=== PATIENT | male | born 1950 | race Caucasian/White ===

== ENCOUNTER 2019-02-22 13:38 | Inpatient (IN) | payer BC, OTHER ==
[2019-02-22] MEDS ORDERED: ALBUTEROL SO4 2.5/IPRATROPIUM 0.5 INH SOL 3 ML VIAL.NEB. NEB ONE ×4 (13:43→14:39)
[2019-02-22] MEDS ORDERED: predniSONE 20 MG TABLET (UD) PO ONE (13:44)
--- NOTE | 2019-02-22 13:44 | PDOC ---
History of Present Illness - General Chief Complaint: Respiratory Stated Complaint: SHORTNESS OF BREATH Time Seen by Provider: 02/22/19 13:44 History Source: Patient Exam Limitations: No Limitations - History of Present Illness Initial Comments: 02/22/19 13:57 69yM w PMHx HTN current smoker, past substance abuse presenting w SOB. Last 4d nasal congestion, chills, SOB. SOB worse lying down, not exacerbated w exertion. Took OTC dayquil, nyquil, advil without symptom relief. States every winter he has SOB relieved w bronchodilators. Denies past hx CHF or COPD though he hasnt seen a PCP or marketing operations specialist in a long time. Denies fever, headache, nausea/vomiting, cough, chest pain/tightness, ABD distension 02/22/19 16:17 Past History - Past Medical History Allergies/Adverse Reactions: Allergies Allergy/AdvReac Type Severity Reaction Status Date / Time No Known Allergies Allergy Verified 02/22/19 13:40 Home Medications: Ambulatory Orders NK [No Known Home Medication] 02/22/19 COPD: No Other medical history: pt denies - Psycho Social/Smoking Cessation Hx Smoking History: Current every day smoker Number of Cigarettes Smoked Daily: 30 Information on smoking cessation initiated: Yes Hx Alcohol Use: No Drug/Substance Use Hx: No Review of Systems - Review of Systems Constitutional: Yes: Chills. No: Fever HEENTM: Yes: Nose Congestion. No: Eye Pain, Throat Pain, Mouth Pain Respiratory: Yes: Shortness of Breath. No: Cough Cardiac (ROS): No: Chest Pain, Palpitations ABD/GI: No: Abdominal Distended, Constipated, Diarrhea, Nausea, Vomiting : No: Burning, Dysuria, Flank Pain Musculoskeletal: No: Back Pain, Muscle Pain Integumentary: No: Bruising, Dryness, Erythema Neurological: No: Headache, Seizure, Tingling Psychiatric: No: Anxiety, Depression, Stressors Endocrine: No: Excessive Sweating, Flushing, Intolerance to Cold, Intolerance to Heat Hematologic/Lymphatic: No: Anemia, Blood Clots *Physical Exam - Vital Signs Last Vital Signs Temp Pulse Resp BP Pulse Ox 97.5 F L 81 19 175/107 H 93 L 02/22/19 13:39 02/22/19 13:39 02/22/19 13:39 02/22/19 13:39 02/22/19 13:39 - Physical Exam General Appearance: Yes: Nourished, Appropriately Dressed. No: Apparent Distress HEENT: positive: EOMI, ABDI, Normal Voice, Nasal Congestion, Hearing Grossly Normal. negative: Scleral Icterus (R), Scleral Icterus (L), Tonsillar Exudate, Tonsillar Erythema Neck: negative: Lymphadenopathy (R), Lymphadenopathy (L) Respiratory/Chest: positive: Decreased Breath Sounds (fox), Wheezing (fox). negative: Chest Tender, Respiratory Distress, Crackles, Rales, Rhonchi, Stridor Cardiovascular: positive: Regular Rhythm, Regular Rate, S1, S2. negative: Edema , Murmur Gastrointestinal/Abdominal: positive: Normal Bowel Sounds, Flat, Soft. negative : Tender, Organomegaly Musculoskeletal: negative: CVA Tenderness (R), CVA Tenderness (L) Extremity: positive: Swelling (2+ pitting edema to knees fox) Integumentary: positive: Normal Color Neurologic: positive: flying ii instructor II-XII NML intact, Fully Oriented, Alert, Normal Response, Responsive. negative: Numbness, Confused, Disoriented ED Treatment Course - LABORATORY CBC & Chemistry Diagram: 02/22/19 14:20 02/22/19 14:20 Medical Decision Making - Medical Decision Making 02/22/19 13:54 CBC CMP trop BNP flu CXR shows fox pulm vascular congestion, fox basilar effusions, cardiomegaly EKG shows NSR, LVH, HR 87, long QTc 493, no ST changes CBC CMP normal, trop 0.05 --- 69yM w PMHx HTN current smoker presenting w SOB. Last 4d nasal congestion, chills, SOB d/t CHF exacerbation (orthopnea, BLE swelling, BNP 3000) and COPD exacerbation (fox wheezing, decreased breath sounds) exacerbation by viral URI. Low concern for PNA (no consolidation CXR) vs ACS (neg trop, NSR EKG). Repeat BP 178/116. Given albuterolx2, prednisone, 20 lasix. Did smoking cessation Admitted tele Dr Pierre for CHF exacerbation, COPD exacerbation, hypertension Discharge - Discharge Information Problems reviewed: Yes Clinical Impression/Diagnosis: COPD exacerbation, Viral URI CHF exacerbation Qualifiers: Heart failure type: unspecified Qualified Code(s): I50.9 - Heart failure, unspecified Hypertension Qualifiers: Hypertension type: unspecified Qualified Code(s): I10 - Essential (primary) hypertension Condition: Stable - Follow up/Referral Referrals: Padilla Foster MD [Staff Physician] - Raymundo Dodson MD [Staff Physician] - - Patient Discharge Instructions Patient Printed Discharge Instructions: DI for Heart Failure, DI for Chronic Obstructive Pulmonary Disease, Smoking Cessation - Post Discharge Activity
[2019-02-22] MEDS ORDERED: predniSONE 20 MG TABLET (UD) ONE (13:47)
--- NOTE | 2019-02-22 14:15 | PDOC ---
Attending Attestation - Resident Resident Name: Ronny Ingram - ED Attending Attestation I have performed the following: I have examined & evaluated the patient, The case was reviewed & discussed with the resident, I agree w/resident's findings & plan, Exceptions are as noted - HPI HPI: 02/22/19 14:09 69 yo male h/o long time smoking here with cough congestion sob and exertional dyspnea for few days. pt describes chills, no fever. no n/v has noted bilat swelling to his extremities. denying any chest pain however he does have positional worsening shortness of breath and exertional dyspnea. Denies any recent known history of heart disease or congestive heart failure. States that he has never been diagnosed truly with COPD however he has been treated for bronchitis with bronchodilators in the past. Does not have any bronchodilators at home. no known sick contacts. no travel. no known h/o pe or dvt. 02/22/19 14:46 - Physicial Exam PE: 02/22/19 14:48 Awake alert no acute distress patient does have bilateral expiratory wheezing and faint crackles at the bases. He has normal effort however and good aeration. Heart is regular without any murmurs rubs or gallops abdomen is soft nontender there is noted to be reducible billable hernia. Extremities are noted for bilateral pitting edema 2+ to the mid serrano. 2+ DP PT pulses. Patient is awake alert and oriented x3 skin is warm and dry - Medical Decision Making 02/22/19 14:48 69-year-old male history of long-time smoking likely COPD here today with cough congestion subjective chills and shortness of breath. Also noted to have a new peripheral leg edema. There may be a viral component differential includes CHF , pneumonia, COPD exacerbation, renal failure, or liver disease. Plan chest x- ray EKG chest x-ray BNP troponin CBC CMP. We will initially treat with bronchodilators and steroids. Flu swab was sent and is pending 02/22/19 16:06 pt bnp elevated. cxr wtih vasc congestion, concerns for CHF. did feel mild improved with nebs. ordered for lasix. due to fact pt no h/o chf, recommend admission . cardiac workup. pt hesitant to stay . currently has no pcp. family friend dr Goldstein. offered to call DR Goldstein to discuss plan. pt would like to think it over, does not want dr goldstein called at this time. 02/22/19 17:44 pt agreeable with admission. given lasix 20 mg bp improved. oxygen improved wtih negs and oxygen. will need echo on admission. copd exacerabation, and chf. Heart Score/ECG Review #1 General ECG Interpretation: Sinus Rhythm, Normal Rate (87), Normal Intervals, No acute ischemic changes
[2019-02-22 14:33] LABS: EOS % 1.6 % (0-4.5); HEMATOCRIT 45.8 % (35.4-49); HEMOGLOBIN 15.3 GM/dl (11.7-16.9); MCH 30.4 pg (25.7-33.7); MCHC 33.3 g/dl (32.0-35.9); MEAN CELL VOLUME 91.2 fl (80-96); MEAN PLT VOLUME 8.4 fl (7.5-11.1); MONO % 8.4 % (3.8-10.2); PLATELET COUNT 273 K/MM3 (134-434); RBC 5.02 M/mm3 (4.00-5.60); RDW 13.3 % (11.9-15.9); WHITE BLOOD COUNT 9.8 K/mm3 (4.0-10.8)
[2019-02-22 14:55] LABS: ALBUMIN 3.8 g/dl (3.4-5.0); BILIRUBIN,TOTAL 0.7 mg/dl (0.2-1); CALCIUM 8.7 mg/dl (8.5-10); CREATININE 0.9 mg/dl (0.55-1.3); POTASSIUM 3.5 mmol/L (3.5-5.1); TOT PROT 6.9 g/dl (6.4-8.2)
[2019-02-22] MEDS ORDERED: FUROSEMIDE 20 MG TABLET (FP) PO ONE (15:51)
[2019-02-22] MEDS ORDERED: FUROSEMIDE 40 MG TABLET (FP) ONE (16:01)
[2019-02-22] MEDS ORDERED: ALBUTEROL SO4 2.5/IPRATROPIUM 0.5 INH SOL 3 ML VIAL.NEB. NEB PRN (17:06)
[2019-02-22] MEDS ORDERED: amLODIPine BESYLATE 5 MG TABLET (FP) PO ONE (17:26)
[2019-02-22] MEDS ORDERED: methylPREDNISolone NA SUCC 40 MG/1 ML VIAL IVPUSH SCH (17:30)
[2019-02-22] MEDS: FUROSEMIDE 40 MG/4 ML INJECTABLE VIAL IVPUSH SCH (18:04)
[2019-02-22] MEDS ORDERED: POTASSIUM CHLORIDE TABS 20 MEQ TABLET.ER (FP) PO ONE (18:07)
--- NOTE | 2019-02-22 18:21 | CON.CARD ---
Consult Consult Specialty:: Cardiology Referred by:: Emergency Medicine Reason for Consultation:: SOLIMAN, orthopnea - History of Present Illness Chief Complaint: SOLIMAN, orthopnea History of Present Illness: 69 yo male h/o long time smoking presents with nonproductive cough, exertional dyspnea, LE edema and orthopnea w/o chest pain, near or true syncope, palpitations, PND. Patient adds salt to diet, uses Advil. Noted to be hypertensive 178/116, hypoxic, symptoms improving with diuresis. - History Source History Provided By: Patient Limitations to Obtaining History: No Limitations - Alcohol/Substance Use Hx Alcohol Use: No - Smoking History Smoking history: Current every day smoker Aproximately how many cigarettes per day: 30 Home Medications - Allergies Allergies/Adverse Reactions: Allergies Allergy/AdvReac Type Severity Reaction Status Date / Time No Known Allergies Allergy Verified 02/22/19 13:40 - Home Medications Home Medications: Ambulatory Orders NK [No Known Home Medication] 02/22/19 Review of Systems - Review of Systems Respiratory: reports: Exercise Intolerance, Orthopnea, SOB, SOB on Exertion Vital Signs: Vital Signs Temperature 99.1 F 02/22/19 16:04 Pulse Rate 78 02/22/19 17:07 Respiratory Rate 19 02/22/19 17:07 Blood Pressure 164/95 02/22/19 17:07 O2 Sat by Pulse Oximetry (%) 94 L 02/22/19 17:07 Constitutional: Yes: No Distress, Calm, Thin Neck: Yes: Supple Respiratory: Yes: Regular, Diminished Gastrointestinal: Yes: Normal Bowel Sounds, Soft Cardiovascular: Yes: Regular Rate and Rhythm JVD: No Carotid Bruit: No Heart Sounds: Yes: S1, S2 Murmur: Yes: Systolic Murmur, Grade 1 Edema: Yes Edema: LLE: Trace, RLE: Trace - Other Data Labs, Other Data: CBC, BMP 02/22/19 14:20 02/22/19 14:20 Troponin, BNP 02/22/19 02/22/19 14:20 14:20 Troponin I 0.05 B-Natriuretic Peptide 3333.9 H Troponin, BNP 02/22/19 02/22/19 14:20 14:20 Troponin I 0.05 B-Natriuretic Peptide 3333.9 H NSR @ 87 LAE, LVH with nonspec T wave changes Imaging - Results Chest X-ray: Report Reviewed (CHF) Problem List - Problems (1) Hypertensive heart disease with acute diastolic congestive heart failure Code(s): I11.0 - HYPERTENSIVE HEART DISEASE WITH HEART FAILURE; I50.31 - ACUTE DIASTOLIC (CONGESTIVE) HEART FAILURE (2) Tobacco dependence due to cigarettes Code(s): F17.210 - NICOTINE DEPENDENCE, CIGARETTES, UNCOMPLICATED (3) Acute respiratory failure with hypoxia Code(s): J96.01 - ACUTE RESPIRATORY FAILURE WITH HYPOXIA (4) CHF exacerbation Code(s): I50.9 - HEART FAILURE, UNSPECIFIED Qualifiers: Heart failure type: unspecified Qualified Code(s): I50.9 - Heart failure, unspecified Assessment/Plan 1. Acute hypoxic respiratory failure 2. Acute diastolic heart failure 3. Hypertensive heart disease with urgency 4. Tobacco dependence 5. COPD P:1. IV diuresis with monitor diuretic response, renal fxn and electrolytes, replete K 2. Start Diovan 80 qd with uptitration as tolerated, started Norvasc 5 qd 3. Check echo to assess ventricular size and fxn 4. Check TSH, lipid panel and Ha1c 5. BD, O2 as needed, hold off on steroids 6. Thank you for consultative opportunity
[2019-02-22 18:39] VITALS: BMI 31.0
[2019-02-22] MEDS: VALSARTAN 80 MG TABLET (UD) PO SCH (19:49)
--- NOTE | 2019-02-22 20:26 | HP ---
Admitting History and Physical - Primary Care Physician PCP: Dr. Yañez - Admission Chief Complaint: SOB History of Present Illness: 69 year old female with PMHx of HTN, current smoker, past substance abuse arrived to ED with complain of cough, congestion with SOB (exertional dyspnea) for past 4 days, also complains of chills, no fever. Patient took OTC dayquil, nyquil, advil without symptom relief. According to patient every winter he has SOB relieved with bronchodilators. Patient denies past hx CHF or COPD though has not seen a PCP or logging worker in a long time. Patient denies fever, headache, nausea/vomiting, cough, chest pain/tightness. History Source: Patient Limitations to Obtaining History: No Limitations - Past Medical History Cardiovascular: Yes: HTN - Past Surgical History Past Surgical History: Yes: Joint Replacement Additional Past Surgical History: b/l hip - Smoking History Smoking history: Current every day smoker Aproximately how many cigarettes per day: 30 - Alcohol/Substance Use Hx Alcohol Use: No History of Substance Use: reports: None - Social History Usual Living Arrangement: Yes: Alone ADL: Independent History of Recent Travel: No Home Medications - Allergies Allergies/Adverse Reactions: Allergies Allergy/AdvReac Type Severity Reaction Status Date / Time No Known Allergies Allergy Verified 02/22/19 13:40 - Home Medications Home Medications: Ambulatory Orders NK [No Known Home Medication] 02/22/19 Family Medical History Family Hx Respiratory Disorders: Mother (copd ) Review of Systems - Review of Systems Constitutional: reports: Chills Eyes: reports: No Symptoms HENT: reports: No Symptoms, Nasal Congestion Neck: reports: No Symptoms Cardiovascular: reports: No Symptoms Respiratory: reports: Cough, SOB on Exertion Gastrointestinal: reports: No Symptoms Genitourinary: reports: No Symptoms Breasts: reports: No Symptoms Reported Musculoskeletal: reports: No Symptoms Integumentary: reports: No Symptoms Neurological: reports: No Symptoms Endocrine: reports: No Symptoms Hematology/Lymphatic: reports: No Symptoms Psychiatric: reports: No Symptoms Physical Examination Vital Signs: Vital Signs Temperature 98.8 F 02/22/19 18:22 Pulse Rate 88 02/22/19 18:22 Respiratory Rate 20 02/22/19 18:22 Blood Pressure 158/81 02/22/19 19:56 O2 Sat by Pulse Oximetry (%) 94 L 02/22/19 18:22 Constitutional: Yes: No Distress, Calm Eyes: Yes: Conjunctiva Clear, EOM Intact HENT: Yes: Atraumatic, Normocephalic Neck: Yes: Supple, Trachea Midline Cardiovascular: Yes: Regular Rate and Rhythm, S1, S2 Respiratory: Yes: Regular, Rales Gastrointestinal: Yes: Normal Bowel Sounds, Soft Musculoskeletal: Yes: WNL Extremities: Yes: WNL Edema: Yes Edema: LLE: 2+, RLE: 2+ Peripheral Pulses WNL: Yes Integumentary: Yes: WNL Neurological: Yes: Alert, Oriented Labs: CBC, BMP 02/22/19 14:20 02/22/19 14:20 Imaging - Results Chest X-ray: Report Reviewed (CXR shows b/l pulm vascular congestion, fox basilar effusions, cardiomegaly) EKG: Report Reviewed (EKG shows NSR, LVH, HR 87, long QTc 493, no ST changes - trop: 0.05) Other: Report Reviewed (BNP: 3333.9) Problem List - Problems (1) Acute respiratory failure with hypoxia Code(s): J96.01 - ACUTE RESPIRATORY FAILURE WITH HYPOXIA (2) CHF exacerbation Code(s): I50.9 - HEART FAILURE, UNSPECIFIED Qualifiers: Heart failure type: unspecified Qualified Code(s): I50.9 - Heart failure, unspecified (3) COPD exacerbation Code(s): J44.1 - CHRONIC OBSTRUCTIVE PULMONARY DISEASE W (ACUTE) EXACERBATION (4) Hypertensive heart disease with acute diastolic congestive heart failure Code(s): I11.0 - HYPERTENSIVE HEART DISEASE WITH HEART FAILURE; I50.31 - ACUTE DIASTOLIC (CONGESTIVE) HEART FAILURE (5) Tobacco dependence due to cigarettes Code(s): F17.210 - NICOTINE DEPENDENCE, CIGARETTES, UNCOMPLICATED Assessment/Plan 69 year old female with PMHx of HTN, current smoker, past substance abuse arrived to ED with complain of cough, congestion with SOB (exertional dyspnea) for past 4 days, also complains of chills, no fever. #Acute respiratory distress with CHF exacerbation CBC: unremarkable CMP: lytes wnl Trop: 0.05 follow # 2 FLU A/B: negative BNP: 3333.9 CXR shows fox pulm vascular congestion, fox basilar effusions, cardiomegaly EKG shows NSR, no ST changes In ED given lasix 40 IV push + 20 po, nebs x2 and prednisone - given KCL 40 mEq x1 Cardiology follow up noted - continue with o2 via NC - continue with IV lasix BID - follow up ECHO in AM - d/c steroids per cardio - follow up TSH, lipids and A1c levels - follow bmp and monitor lytes - monitor I&O - weights - fluid restriction # ?COPD exacerbation - continue with nebs q 6 - steroids on hold per cardio, if worsen consider restarting # HTN - seen by cardiology - started on Diovan 80 mg - started on Norvasc 5 mg daily - monitor BP closely and titrate up Diovan to stabilize BP FEN: restrict fluids, replete lytes as needed, cardiac diet VTE: heparin BID Dispo: tele inpatient Visit type - Emergency Visit Emergency Visit: Yes ED Registration Date: 02/22/19 Care time: The patient presented to the Emergency Department on the above date and was hospitalized for further evaluation of their emergent condition. - New Patient This patient is new to me today: Yes Date on this admission: 02/23/19 - Critical Care Critical Care patient: No
[2019-02-22] MEDS: ALBUTEROL SO4 2.5/IPRATROPIUM 0.5 INH SOL 3 ML VIAL.NEB. NEB SCH (21:16)
[2019-02-22] MEDS: HEPARIN NA (PORCINE) 5,000 UNITS/ML 1ML VIAL SQ SCH (21:17)
[2019-02-23] MEDS ORDERED: FUROSEMIDE 40 MG/4 ML INJECTABLE VIAL IVPUSH SCH (06:00)
[2019-02-23] MEDS: FUROSEMIDE 40 MG/4 ML INJECTABLE VIAL IVPUSH SCH ×2 (06:14→14:00)
--- NOTE | 2019-02-23 06:51 | PN ---
Progress Note (short form) - Note Progress Note: Chief Complaint: Events noted, notes reviewed, dyspnea clinically improved, reports cough, denies any chest pain History of Present Illness: Seen and examined on telemetry. Events noted, notes reviewed, dyspnea clinically improved, reports cough, denies any chest pain Non sustained wide complex rhythm noted, AIVR, others are artifact - Current Medication List Current Medications Albuterol/Ipratropium (Duoneb -) 1 amp NEB RQID [facility] Last Admin: 02/22/19 21:16 Dose: 1 amp Amlodipine Besylate (Norvasc -) 5 mg PO DAILY [facility] Furosemide (Lasix Injection -) 40 mg IVPUSH BID@0600,1400 [facility] Last Admin: 02/23/19 06:14 Dose: 40 mg Heparin Sodium (Porcine) (Heparin -) 5,000 unit SQ BID [facility] Last Admin: 02/22/19 21:17 Dose: 5,000 unit Valsartan (Diovan -) 80 mg PO DAILY [facility] Last Admin: 02/22/19 19:49 Dose: 80 mg Review of Systems - Review of Systems Constitutional: no symptoms reported Respiratory: reports: Cough denies: Sputum Production Cardiovascular: as noted above Gastrointestinal: denies Nausea, Vomiting, Diarrhea, Constipation or Abdominal Pain Genitourinary: no symptoms reported Musculoskeletal: no symptoms reported Endocrine: no symptoms reported - Objective Vital Signs: Last Vital Signs Temp Pulse Resp BP Pulse Ox 97.9 F 79 16 133/74 95 02/23/19 06:00 02/23/19 06:00 02/23/19 06:00 02/23/19 06:00 02/22/19 23:00 Intake & Output 02/20/19 02/21/19 02/22/19 02/23/19 23:59 23:59 23:59 23:59 Intake Total 500 Output Total 3200 600 Balance -2700 -600 Weight 261 lb 11.2 oz 250 lb 7 oz Neck: Supple Negative JVD No Bruit Cardiovascular: S1 S2 Regular Rate and Rhythm No Murmurs Respiratory: Diminished Breath Sounds at the Bases Gastrointestinal: Soft Benign Normal Bowel Sounds Extremities: Trace Edema Labs: Troponin, BNP 02/22/19 02/22/19 02/23/19 14:20 14:20 01:00 Troponin I 0.05 Cancelled B-Natriuretic Peptide 3333.9 H 02/23/19 01:00 Troponin I 0.03 B-Natriuretic Peptide CBC, BMP 02/22/19 14:20 02/22/19 14:20 Hepatic Panel Total Bilirubin 0.7 mg/dl (0.2-1) 02/22/19 14:20 AST 14 U/L (15-37) L 02/22/19 14:20 ALT 17 U/L (13-61) 02/22/19 14:20 Alkaline Phosphatase 86 U/L (45-117) 02/22/19 14:20 Albumin 3.8 g/dl (3.4-5.0) 02/22/19 14:20 Assessment/Plan ASSESSMENT: 1. Acute hypoxic respiratory failure related to 2. Acute class II NYHA classification LV diastolic heart failure, clinically resolving 3. Hypertensive heart disease with hypertensive urgency, clinically improved 4. Non sustained wide complex rhythm/AIVR 5. Probable COPD 6. Tobacco abuse PLAN: 1. Continue Lasix IV for an additional 24-48 hours with close monitoring of renal function and electrolytes 2. Continue Diovan and up-titration as tolerated 3. Continue Norvasc 4. Attempt B-Blockers with caution, Bystolic 5. Add ASA 6. Consider D/C nebulizer therapy no active wheeze 7. Echocardiography to assess LV/RV size and function, valvular function 8. Counseled smoking cessation and abstinence Jordan Minaya MD
--- NOTE | 2019-02-23 07:39 | PN ---
Progress Note (short form) - Note Progress Note: PULMONARY CONSULTATION DICTATED IMP ACUTE HYPOXEMIC RESPIRATORY FAILURE ACUTE CHF COPD EXACERBATION HYPERTENSIVE URGENCY TOBACCO ABUSE PLAN LASIX O2 INHALED BRONCHODILATORS CHEST CT ECHO OUTPATIENT PFTS AMBULATORY O2 SAT ON RA PRIOR TO DISCHARGE SMOKING CESSATION COUNSELED DR ARAUJO Problem List - Problems (1) Tobacco abuse counseling Code(s): Z71.6 - TOBACCO ABUSE COUNSELING (2) Acute respiratory failure with hypoxia Code(s): J96.01 - ACUTE RESPIRATORY FAILURE WITH HYPOXIA (3) CHF exacerbation Code(s): I50.9 - HEART FAILURE, UNSPECIFIED Qualifiers: Heart failure type: unspecified Qualified Code(s): I50.9 - Heart failure, unspecified (4) COPD exacerbation Code(s): J44.1 - CHRONIC OBSTRUCTIVE PULMONARY DISEASE W (ACUTE) EXACERBATION (5) Hypertension Code(s): I10 - ESSENTIAL (PRIMARY) HYPERTENSION Qualifiers: Hypertension type: unspecified Qualified Code(s): I10 - Essential (primary ) hypertension (6) Tobacco dependence due to cigarettes Code(s): F17.210 - NICOTINE DEPENDENCE, CIGARETTES, UNCOMPLICATED
[2019-02-23 08:52] LABS: BASO % 0.3 % (0-2.0); HEMATOCRIT 46.3 % (35.4-49); HEMOGLOBIN 15.3 GM/dl (11.7-16.9); LYMPH % 13.8 % (8-40); MCH 30.2 pg (25.7-33.7); MCHC 33.1 g/dl (32.0-35.9); MEAN CELL VOLUME 91.2 fl (80-96); MEAN PLT VOLUME 8.6 fl (7.5-11.1); MONO % 8.4 % (3.8-10.2); NEUT % 77.5 % (42.8-82.8); PLATELET COUNT 299 K/MM3 (134-434); RBC 5.08 M/mm3 (4.00-5.60); RDW 13.1 % (11.9-15.9); WHITE BLOOD COUNT 9.7 K/mm3 (4.0-10.8)
[2019-02-23] MEDS: ALBUTEROL SO4 2.5/IPRATROPIUM 0.5 INH SOL 3 ML VIAL.NEB. NEB SCH (09:43)
[2019-02-23] MEDS: ASPIRIN COATED 81 MG TABLET.EC PO SCH (09:44)
[2019-02-23] MEDS: HEPARIN NA (PORCINE) 5,000 UNITS/ML 1ML VIAL SQ SCH ×2 (09:44→21:44)
[2019-02-23] MEDS: VALSARTAN 80 MG TABLET (UD) PO SCH (09:44)
[2019-02-23] MEDS: amLODIPine BESYLATE 5 MG TABLET (FP) PO SCH (09:45)
[2019-02-23] MEDS ORDERED: NEBIVOLOL 2.5 MG TABLET (FP) PO SCH (10:00)
[2019-02-23] MEDS ORDERED: POTASSIUM CHLORIDE TABS 20 MEQ TABLET.ER (FP) PO SCH (10:00)
[2019-02-23] MEDS ORDERED: ALBUTEROL SO4 2.5/IPRATROPIUM 0.5 INH SOL 3 ML VIAL.NEB. NEB PRN (10:22)
--- NOTE | 2019-02-23 10:32 | PN ---
Physical Exam: SUBJECTIVE: Patient seen and examined at bedside, reports feeling better, denies cp,sob,cough, palpitations, abdominal pain, N/V/D or urinary symptoms. OBJECTIVE: Vital Signs Period Temp Pulse Resp BP Sys/Bishop Pulse Ox Last 24 Hr 97.5 F-99.1 F 64-88 16-20 133-178/71-116 91-95 GENERAL: The patient is awake, alert, and fully oriented, in no acute distress. HEAD: Normal with no signs of trauma. EYES: PERRL, extraocular movements intact, sclera anicteric, conjunctiva clear. No ptosis. ENT: Ears normal, nares patent, oropharynx clear without exudates, moist mucous membranes. NECK: Trachea midline, full range of motion, supple. LUNGS: Breath sounds equal, clear to auscultation bilaterally, no wheezes, no crackles, no accessory muscle use. HEART: Regular rate and rhythm, S1, S2 without murmur, rub or gallop. ABDOMEN: Soft, nontender, nondistended, normoactive bowel sounds, no guarding, no rebound, no hepatosplenomegaly, no masses.Umbilical hernia EXTREMITIES: 2+ pulses, warm, well-perfused, no edema. NEUROLOGICAL: Cranial nerves II through XII grossly intact. Normal speech, gait not observed. PSYCH: Normal mood, normal affect. SKIN: Warm, dry, normal turgor, no rashes or lesions noted Laboratory Results - last 24 hr 02/22/19 02/22/19 02/22/19 14:20 14:20 14:20 WBC 9.8 RBC 5.02 Hgb 15.3 Hct 45.8 MCV 91.2 MCH 30.4 MCHC 33.3 RDW 13.3 Plt Count 273 MPV 8.4 Absolute Neuts (auto) 6.9 Neutrophils % 71.0 Lymphocytes % 18.0 Monocytes % 8.4 Eosinophils % 1.6 Basophils % 1.0 Sodium 137 Potassium 3.5 Chloride 99 Carbon Dioxide 27 Anion Gap 11 BUN 12.0 Creatinine 0.9 Est GFR (CKD-EPI)AfAm 102.07 Est GFR (CKD-EPI)NonAf 88.07 Random Glucose 105 Calcium 8.7 Total Bilirubin 0.7 AST 14 L ALT 17 Alkaline Phosphatase 86 Creatine Kinase Troponin I B-Natriuretic Peptide 3333.9 H Total Protein 6.9 Albumin 3.8 Influenza A (Rapid) Influenza B (Rapid) 02/22/19 02/22/19 02/22/19 14:20 14:20 14:35 WBC RBC Hgb Hct MCV MCH MCHC RDW Plt Count MPV Absolute Neuts (auto) Neutrophils % Lymphocytes % Monocytes % Eosinophils % Basophils % Sodium Potassium Chloride Carbon Dioxide Anion Gap BUN Creatinine Est GFR (CKD-EPI)AfAm Est GFR (CKD-EPI)NonAf Random Glucose Calcium Total Bilirubin AST ALT Alkaline Phosphatase Creatine Kinase 95 Troponin I 0.05 B-Natriuretic Peptide Total Protein Albumin Influenza A (Rapid) Negative Influenza B (Rapid) Negative 02/23/19 02/23/19 02/23/19 01:00 01:00 07:20 WBC 9.7 RBC 5.08 Hgb 15.3 Hct 46.3 MCV 91.2 MCH 30.2 MCHC 33.1 RDW 13.1 Plt Count 299 MPV 8.6 Absolute Neuts (auto) 7.6 Neutrophils % 77.5 Lymphocytes % 13.8 D Monocytes % 8.4 Eosinophils % 0.0 D Basophils % 0.3 Sodium Potassium Chloride Carbon Dioxide Anion Gap BUN Creatinine Est GFR (CKD-EPI)AfAm Est GFR (CKD-EPI)NonAf Random Glucose Calcium Total Bilirubin AST ALT Alkaline Phosphatase Creatine Kinase Troponin I Cancelled 0.03 B-Natriuretic Peptide Total Protein Albumin Influenza A (Rapid) Influenza B (Rapid) Active Medications Generic Name Dose Route Start Last Admin Trade Name Freq PRN Reason Stop Dose Admin Albuterol/Ipratropium 1 amp 02/22/19 20:45 02/23/19 09:43 Duoneb - NEB 1 amp RQID GAVIN Administration Amlodipine Besylate 5 mg 02/23/19 10:00 02/23/19 09:45 Norvasc - PO 5 mg DAILY GAVIN Administration Aspirin 81 mg 02/23/19 10:00 02/23/19 09:44 Ecotrin - PO 81 mg DAILY GAVIN Administration Furosemide 40 mg 02/22/19 17:40 02/23/19 06:14 Lasix Injection - IVPUSH 40 mg BID@0600,1400 GAVIN Administration Heparin Sodium (Porcine) 5,000 unit 02/22/19 22:00 02/23/19 09:44 Heparin - SQ 5,000 unit BID GAVIN Administration Nebivolol 2.5 mg 02/23/19 10:00 02/23/19 09:44 Bystolic - PO 2.5 mg DAILY GAVIN Administration Potassium Chloride 20 meq 02/23/19 10:00 02/23/19 09:45 K-Dur - PO 20 meq DAILY GAVIN Administration Valsartan 80 mg 02/22/19 19:15 02/23/19 09:44 Diovan - PO 80 mg DAILY GAVIN Administration ASSESSMENT/PLAN: This is a 69 year old female with PMHx of HTN, current smoker, past substance abuse arrived to ED with complain of cough, congestion with SOB (exertional dyspnea) for past 4 days, also complains of chills, no fever. #Acute respiratory distress with CHF exacerbation -CxR shows fox pulm vascular congestion, fox basilar effusions, cardiomegaly -EKG shows NSR, no ST changes -Trop: 0.05 >0.03 - Influenza ruled out -BNP: 3333.9 - cardiology following - will cont on Lasix - Echo - monitor daily wt and I&O's - fluid restriction - will cont on Diovan #? COPD exacerbation - stable now - continue with nebs PRN - will hold off Steroid as not on any res res issues # HTN - BP improved -added Diovan and Norvasc -will monitor BP closely # Smoker - smoking cessation counselling done - Ref Nicotine patch a FEN: restrict fluids, replete lytes as needed, cardiac diet VTE: heparin BID Dispo: tele inpatient Visit type - Emergency Visit Emergency Visit: Yes ED Registration Date: 02/22/19 Care time: The patient presented to the Emergency Department on the above date and was hospitalized for further evaluation of their emergent condition. - New Patient This patient is new to me today: Yes Date on this admission: 02/23/19 - Critical Care Critical Care patient: No
--- NOTE | 2019-02-23 13:36 | EKG ---
Test Reason : Blood Pressure : / mmHG Vent. Rate : 088 BPM Atrial Rate : 088 BPM P-R Int : 156 ms QRS Dur : 108 ms QT Int : 412 ms P-R-T Axes : 034 028 157 degrees QTc Int : 498 ms POOR DATA QUALITY, INTERPRETATION MAY BE ADVERSELY AFFECTED NORMAL SINUS RHYTHM POSSIBLE LEFT ATRIAL ENLARGEMENT LEFT VENTRICULAR HYPERTROPHY T WAVE ABNORMALITY, CONSIDER INFERIOR ISCHEMIA PROLONGED QT ABNORMAL ECG NO PREVIOUS ECGS AVAILABLE Confirmed by MD ROMANA, JUNIE ([id number]) on 02/23/2019 1:36:48 PM Referred By: Confirmed By:JUNIE AVENDANO MD
--- NOTE | 2019-02-23 15:16 | CONS ---
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 Patient states for 3-4 days prior to admission he started noticing shortness of breath and cough which was nonproductive. He also described chills, but no fever. He denied any chest pains or palpitations. He states that his symptoms continued to worsen, increasing with exertion. He also complained of wheezing. He denied any history of URI symptoms or known exposure to any sick contacts at home. Patient states that in the past he has been treated for bronchitis and has taken antibiotics usually every winter, and a couple of years ago, was prescribed an inhaler. He states he has never been diagnosed with COPD, but has been treated for bronchitis as stated earlier. He denies any history of cardiac disease. There is no history of cardiac arrhythmias or congestive heart failure. On current hospitalization, the patient was noted to have an elevated BNP. He was evaluated by Dr. Chawla for Cardiology, who felt that the patient most likely had acute congestive heart failure. He was noted to be hypoxic. He was started on IV Lasix and inhaled bronchodilators with good response. He was also noted to be hypertensive with blood pressure of 178/116 on admission. PAST MEDICAL HISTORY: Again includes likely COPD and bronchitis. 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 Currently smoking 1-1/2 packs per day for greater than 30 years. REVIEW OF SYSTEMS: Positive cough. Positive shortness of breath. Positive chest congestion. No fever. Positive chills. No hemoptysis. No abdominal pain. No weight loss. No night sweats. CURRENT MEDICATIONS: Include Diovan, heparin, DuoNeb, Bystolic, Norvasc, Lasix, Ecotrin, and K-Dur. PHYSICAL EXAMINATION: General: Patient is a well-developed, well-nourished male, awake, alert, in no acute distress. Vital Signs: He is currently afebrile. Blood pressure is 142/71, respiratory rate is 19, O2 saturation is 98% on room air. HEENT: Normocephalic, atraumatic. Neck: Supple. Heart: Regular. S1, S2. Chest: Decreased breath sounds bilaterally. Abdomen: Soft. Bowel sounds are positive. Extremities: Trace bilateral lower extremity edema. LABORATORY DATA: WBC is 9.7, hemoglobin 15.3, hematocrit 46.3 with a platelet count of 299,000. BNP is 3333. Chest x-ray: There are no acute infiltrates or effusions. There are increased lung changes bilaterally. IMPRESSION: Acute hypoxic respiratory failure secondary to multiple factors: 1. Likely acute congestive heart failure. 2. Likely chronic obstructive pulmonary disease with exacerbation. 3. Hypertension. 4. Tobacco abuse. PLAN: Lasix, supplemental O2, inhaled bronchodilators, chest CT. Titrate BP medications. Echocardiogram. Outpatient PFTs. Also, ambulatory O2 saturation on room air prior to discharge to determine whether the patient requires home O2. Also, smoking cessation counseled. BENNY ARAUJO M.D. [id number]
--- NOTE | 2019-02-24 06:42 | PN ---
Progress Note (short form) - Note Progress Note: Chief Complaint: Events noted, notes reviewed, reported dyspnea last night with blood pressure elevation requiring supplemental oxygen, currently denies any dyspnea or cough, denies any chest pain History of Present Illness: Seen and examined on telemetry. Events noted, notes reviewed, reported dyspnea last night with blood pressure elevation requiring supplemental oxygen, currently denies any dyspnea or cough, denies any chest pain As noted in yesterday's note- non sustained wide complex rhythm noted, AIVR - Current Medication List Current Medications Albuterol/Ipratropium (Duoneb -) 1 amp NEB RQID PRN PRN Reason: sob Amlodipine Besylate (Norvasc -) 5 mg PO DAILY [facility] Last Admin: 02/23/19 09:45 Dose: 5 mg Aspirin (Ecotrin -) 81 mg PO DAILY [facility] Last Admin: 02/23/19 09:44 Dose: 81 mg Furosemide (Lasix Injection -) 40 mg IVPUSH BID@0600,1400 [facility] Last Admin: 02/23/19 14:00 Dose: 40 mg Heparin Sodium (Porcine) (Heparin -) 5,000 unit SQ BID [facility] Last Admin: 02/23/19 21:44 Dose: 5,000 unit Nebivolol (Bystolic -) 2.5 mg PO DAILY [facility] Last Admin: 02/23/19 09:44 Dose: 2.5 mg Potassium Chloride (K-Dur -) 20 meq PO DAILY [facility] Last Admin: 02/23/19 09:45 Dose: 20 meq Valsartan (Diovan -) 80 mg PO DAILY [facility] Last Admin: 02/23/19 09:44 Dose: 80 mg Review of Systems - Review of Systems Constitutional: no symptoms reported Respiratory: denies: Cough or Sputum Production Cardiovascular: as noted above Gastrointestinal: denies Nausea, Vomiting, Diarrhea, Constipation or Abdominal Pain Genitourinary: no symptoms reported Musculoskeletal: no symptoms reported Endocrine: no symptoms reported - Objective Vital Signs: Last Vital Signs Temp Pulse Resp BP Pulse Ox 98.5 F 58 L 20 136/79 94 L 02/24/19 03:20 02/24/19 03:20 02/24/19 03:20 02/24/19 03:20 02/24/19 03:20 Intake & Output 02/21/19 02/22/19 02/23/19 02/24/19 23:59 23:59 23:59 23:59 Intake Total 500 950 Output Total 3200 600 Balance -2700 350 Weight 261 lb 11.2 oz 250 lb 7 oz Neck: Supple Negative JVD No Bruit Cardiovascular: S1 S2 Regular Rate and Rhythm No Murmurs Respiratory: Diminished Breath Sounds at the Bases Gastrointestinal: Soft Benign Normal Bowel Sounds Extremities: Negative Edema Labs: CBC, BMP 02/23/19 07:20 02/22/19 14:20 Hepatic Panel Total Bilirubin 0.7 mg/dl (0.2-1) 02/22/19 14:20 AST 14 U/L (15-37) L 02/22/19 14:20 ALT 17 U/L (13-61) 02/22/19 14:20 Alkaline Phosphatase 86 U/L (45-117) 02/22/19 14:20 Albumin 3.8 g/dl (3.4-5.0) 02/22/19 14:20 Assessment/Plan ASSESSMENT: 1. Acute hypoxic respiratory failure related to 2. Acute class II NYHA classification LV diastolic heart failure, clinically resolving 3. CAD angina pectoris to be considered in the differential diagnosis 4. Hypertensive heart disease with hypertensive urgency, clinically improved- blood pressure at goal 5. Non sustained wide complex rhythm/AIVR 6. Probable COPD 7. Tobacco abuse PLAN: 1. Continue Lasix but initiate PO with close monitoring of renal function and electrolytes 2. Continue Diovan and up-titration as tolerated 3. Continue Norvasc 4. Continue Bystolic and up-titration as tolerated 5. Continue ASA 6. As outlined in the prior note consider D/C nebulizer therapy no active wheeze 7. Echocardiography to assess LV/RV size and function, valvular function 8. Obtain lipid profile 9. Counseled smoking cessation and abstinence Jordan Minaya MD
[2019-02-24] MEDS: FUROSEMIDE 40 MG/4 ML INJECTABLE VIAL IVPUSH SCH ×2 (07:00→14:18)
[2019-02-24] MEDS: POTASSIUM CHLORIDE TABS 10 MEQ TABLET.ER (FP) PO SCH (07:40)
--- NOTE | 2019-02-24 07:44 | PN ---
Progress Note, Physician History of Present Illness: PULMONARY ALERT,FEELING BETTER,LESS CONGESTED,LESS DYSPNEIC - Current Medication List Current Medications: Active Medications Albuterol/Ipratropium (Duoneb -) 1 amp NEB RQID PRN PRN Reason: sob Amlodipine Besylate (Norvasc -) 5 mg PO DAILY [facility] Last Admin: 02/23/19 09:45 Dose: 5 mg Aspirin (Ecotrin -) 81 mg PO DAILY [facility] Last Admin: 02/23/19 09:44 Dose: 81 mg Furosemide (Lasix Injection -) 40 mg IVPUSH BID@0600,1400 [facility] Last Admin: 02/24/19 07:00 Dose: 40 mg Furosemide (Lasix -) 20 mg PO DAILY [facility] Heparin Sodium (Porcine) (Heparin -) 5,000 unit SQ BID [facility] Last Admin: 02/23/19 21:44 Dose: 5,000 unit Nebivolol (Bystolic -) 5 mg PO DAILY [facility] Potassium Chloride (K-Dur -) 10 meq PO DAILY [facility] Valsartan (Diovan -) 80 mg PO DAILY [facility] Last Admin: 02/23/19 09:44 Dose: 80 mg - Objective Vital Signs: Vital Signs Temperature 97.9 F 02/24/19 06:00 Pulse Rate 71 02/24/19 06:00 Respiratory Rate 20 02/24/19 06:00 Blood Pressure 148/89 02/24/19 06:00 O2 Sat by Pulse Oximetry (%) 94 L 02/24/19 06:00 Constitutional: Yes: Well Nourished, Calm Eyes: Yes: WNL HENT: Yes: WNL Neck: Yes: WNL Cardiovascular: Yes: Regular Rate and Rhythm, S1, S2 Respiratory: Yes: Diminished Gastrointestinal: Yes: Normal Bowel Sounds, Soft Extremities: Yes: WNL Edema: No Labs: CBC, BMP Problem List - Problems (1) Tobacco abuse counseling Code(s): Z71.6 - TOBACCO ABUSE COUNSELING (2) Acute respiratory failure with hypoxia Code(s): J96.01 - ACUTE RESPIRATORY FAILURE WITH HYPOXIA (3) CHF exacerbation Code(s): I50.9 - HEART FAILURE, UNSPECIFIED Qualifiers: Heart failure type: unspecified Qualified Code(s): I50.9 - Heart failure, unspecified (4) COPD exacerbation Code(s): J44.1 - CHRONIC OBSTRUCTIVE PULMONARY DISEASE W (ACUTE) EXACERBATION (5) Hypertension Code(s): I10 - ESSENTIAL (PRIMARY) HYPERTENSION Qualifiers: Hypertension type: unspecified Qualified Code(s): I10 - Essential (primary ) hypertension (6) Tobacco dependence due to cigarettes Code(s): F17.210 - NICOTINE DEPENDENCE, CIGARETTES, UNCOMPLICATED Assessment/Plan IMP ACUTE HYPOXEMIC RESPIRATORY FAILURE IMPROVING ACUTE CHF IMPROVING COPD EXACERBATION IMPROVING HYPERTENSIVE URGENCY TOBACCO ABUSE PLAN LASIX O2 INHALED BRONCHODILATORS ECHO OUTPATIENT PFTS AMBULATORY O2 SAT ON RA PRIOR TO DISCHARGE SMOKING CESSATION COUNSELED DR ARAUJO Problem List - Problems (1) Tobacco abuse counseling Code(s): Z71.6 - TOBACCO ABUSE COUNSELING (2) Acute respiratory failure with hypoxia Code(s): J96.01 - ACUTE RESPIRATORY FAILURE WITH HYPOXIA (3) CHF exacerbation Code(s): I50.9 - HEART FAILURE, UNSPECIFIED Qualifiers: Heart failure type: unspecified Qualified Code(s): I50.9 - Heart failure, unspecified (4) COPD exacerbation Code(s): J44.1 - CHRONIC OBSTRUCTIVE PULMONARY DISEASE W (ACUTE) EXACERBATION (5) Hypertension Code(s): I10 - ESSENTIAL (PRIMARY) HYPERTENSION Qualifiers: Hypertension type: unspecified Qualified Code(s): I10 - Essential (primary ) hypertension (6) Tobacco dependence due to cigarettes Code(s): F17.210 - NICOTINE DEPENDENCE, CIGARETTES, UNCOMPLICATED
[2019-02-24 09:08] LABS: BASO % 0.9 % (0-2.0); EOS % 4.8 % (0-4.5); HEMATOCRIT 46.8 % (35.4-49); HEMOGLOBIN 15.5 GM/dl (11.7-16.9); LYMPH % 33.2 % (8-40); MCH 30.3 pg (25.7-33.7); MEAN CELL VOLUME 91.6 fl (80-96); MEAN PLT VOLUME 9.1 fl (7.5-11.1); MONO % 10.2 % (3.8-10.2); NEUT % 50.9 % (42.8-82.8); PLATELET COUNT 290 K/MM3 (134-434); RBC 5.11 M/mm3 (4.00-5.60); RDW 13.5 % (11.9-15.9); WHITE BLOOD COUNT 8.8 K/mm3 (4.0-10.8)
[2019-02-24] MEDS: NEBIVOLOL 5 MG TABLET (FP) PO SCH (09:31)
[2019-02-24] MEDS: FUROSEMIDE 20 MG TABLET (FP) PO SCH (09:32)
[2019-02-24] MEDS: ASPIRIN COATED 81 MG TABLET.EC PO SCH (09:32)
[2019-02-24] MEDS: VALSARTAN 80 MG TABLET (UD) PO SCH (09:32)
[2019-02-24] MEDS: amLODIPine BESYLATE 5 MG TABLET (FP) PO SCH (09:32)
[2019-02-24] MEDS: HEPARIN NA (PORCINE) 5,000 UNITS/ML 1ML VIAL SQ SCH ×2 (09:32→21:41)
[2019-02-24 09:38] LABS: CREATININE 1.1 mg/dl (0.55-1.3)
[2019-02-24 09:46] LABS: CHOLESTEROL 192 mg/dl (50-200); HDL CHOLESTEROL 41 mg/dl (40-60); LDL CHOLESTEROL (ONLY DFH) 125 mg/dl (5-100); TRIGLYCERIDES 132 mg/dl (0-150)
--- NOTE | 2019-02-24 11:55 | PN ---
Physical Exam: SUBJECTIVE: Patient seen and examined, Denies sob, dizziness echo ordered OBJECTIVE: Vital Signs Period Temp Pulse Resp BP Sys/Bishop Pulse Ox Last 24 Hr 97.4 F-98.5 F 58-77 19-20 109-148/54-89 88-95 GENERAL: The patient is awake, alert, and fully oriented, in no acute distress. HEAD: Normal with no signs of trauma. EYES: PERRL, extraocular movements intact, sclera anicteric, conjunctiva clear. No ptosis. ENT: Ears normal, nares patent, oropharynx clear without exudates, moist mucous membranes. NECK: Trachea midline, full range of motion, supple. LUNGS: Breath sounds equal, clear to auscultation bilaterally, no wheezes, no crackles, no accessory muscle use. HEART: Regular rate and rhythm, S1, S2 without murmur, rub or gallop. ABDOMEN: Soft, nontender, nondistended, normoactive bowel sounds, no guarding, no rebound, no hepatosplenomegaly, no masses. EXTREMITIES: 2+ pulses, warm, well-perfused, no edema. NEUROLOGICAL: Cranial nerves II through XII grossly intact. Normal speech, gait not observed. PSYCH: Normal mood, normal affect. SKIN: Warm, dry, normal turgor, no rashes or lesions noted Laboratory Results - last 24 hr 02/23/19 02/24/19 02/24/19 06:30 06:30 06:30 WBC 8.8 RBC 5.11 Hgb 15.5 Hct 46.8 MCV 91.6 MCH 30.3 MCHC 33.0 RDW 13.5 Plt Count 290 MPV 9.1 Absolute Neuts (auto) 4.5 Neutrophils % 50.9 D Lymphocytes % 33.2 D Monocytes % 10.2 Eosinophils % 4.8 H D Basophils % 0.9 Sodium 139 Potassium 4.0 Chloride 97 L Carbon Dioxide 32 Anion Gap 10 BUN 19.0 H Creatinine 1.1 Est GFR (CKD-EPI)AfAm 80.08 Est GFR (CKD-EPI)NonAf 69.10 Random Glucose 80 Hemoglobin A1c % 5.7 Calcium 9.0 Triglycerides Cholesterol Total LDL Cholesterol HDL Cholesterol 02/24/19 06:30 WBC RBC Hgb Hct MCV MCH MCHC RDW Plt Count MPV Absolute Neuts (auto) Neutrophils % Lymphocytes % Monocytes % Eosinophils % Basophils % Sodium Potassium Chloride Carbon Dioxide Anion Gap BUN Creatinine Est GFR (CKD-EPI)AfAm Est GFR (CKD-EPI)NonAf Random Glucose Hemoglobin A1c % Calcium Triglycerides 132 Cholesterol 192 Total LDL Cholesterol 125 H HDL Cholesterol 41 Active Medications Generic Name Dose Route Start Last Admin Trade Name Freq PRN Reason Stop Dose Admin Albuterol/Ipratropium 1 amp 02/23/19 10:22 Duoneb - NEB RQID PRN sob Amlodipine Besylate 5 mg 02/23/19 10:00 02/24/19 09:32 Norvasc - PO 5 mg DAILY GAVIN Administration Aspirin 81 mg 02/23/19 10:00 02/24/19 09:32 Ecotrin - PO 81 mg DAILY GAVIN Administration Furosemide 40 mg 02/22/19 17:40 02/24/19 07:00 Lasix Injection - IVPUSH 40 mg BID@0600,1400 GAVIN Administration Furosemide 20 mg 02/24/19 10:00 02/24/19 09:32 Lasix - PO 20 mg DAILY GAVIN Administration Heparin Sodium (Porcine) 5,000 unit 02/22/19 22:00 02/24/19 09:32 Heparin - SQ 5,000 unit BID GAVIN Administration Nebivolol 5 mg 02/24/19 10:00 02/24/19 09:31 Bystolic - PO 5 mg DAILY GAVIN Administration Potassium Chloride 10 meq 02/24/19 07:15 02/24/19 07:40 K-Dur - PO 10 meq DAILY GAVIN Administration Valsartan 80 mg 02/22/19 19:15 02/24/19 09:32 Diovan - PO 80 mg DAILY GAVIN Administration ASSESSMENT/PLAN: This is a 69 year old female with PMHx of HTN, current smoker, past substance abuse arrived to ED with complain of cough, congestion with SOB (exertional dyspnea) for past 4 days, also complains of chills, no fever. #Acute respiratory distress with CHF exacerbation -CxR shows fxo pulm vascular congestion, fox basilar effusions, cardiomegaly -EKG shows NSR, no ST changes - Influenza ruled out -BNP: 3333.9 - cardiology following - will cont on Lasix - Echo for Mon - monitor daily wt and I&O's - fluid restriction - will cont on Diovan #? COPD exacerbation - stable now -pulm following - continue with nebs PRN - will hold off Steroid as not on any res res issues # HTN - BP improved -added Diovan and Norvasc -will monitor BP closely # Smoker - smoking cessation counselling done - Ref Nicotine patch a FEN: restrict fluids, replete lytes as needed, cardiac diet VTE: heparin BID Dispo: tele inpatient Visit type - Emergency Visit Emergency Visit: Yes ED Registration Date: 02/22/19 Care time: The patient presented to the Emergency Department on the above date and was hospitalized for further evaluation of their emergent condition. - New Patient This patient is new to me today: Yes Date on this admission: 02/24/19 - Critical Care Critical Care patient: No
[2019-02-25] MEDS: FUROSEMIDE 40 MG/4 ML INJECTABLE VIAL IVPUSH SCH (06:26)
[2019-02-25 08:20] LABS: BASO % 0.9 % (0-2.0); EOS % 5.5 % (0-4.5); HEMATOCRIT 49.5 % (35.4-49); HEMOGLOBIN 16.3 GM/dl (11.7-16.9); LYMPH % 25.6 % (8-40); MCH 30.2 pg (25.7-33.7); MCHC 32.9 g/dl (32.0-35.9); MEAN CELL VOLUME 91.9 fl (80-96); MEAN PLT VOLUME 8.8 fl (7.5-11.1); MONO % 9.5 % (3.8-10.2); NEUT % 58.5 % (42.8-82.8); PLATELET COUNT 279 K/MM3 (134-434); RBC 5.39 M/mm3 (4.00-5.60); RDW 13.6 % (11.9-15.9); WHITE BLOOD COUNT 9.1 K/mm3 (4.0-10.8)
[2019-02-25 08:29] LABS: BILIRUBIN,TOTAL 0.8 mg/dl (0.2-1); CALCIUM 9.4 mg/dl (8.5-10); CREATININE 1.1 mg/dl (0.55-1.3); MAGNESIUM 2.2 mg/dL (1.8-2.4); POTASSIUM 4.2 mmol/L (3.5-5.1); TOT PROT 7.5 g/dl (6.4-8.2)
[2019-02-25] MEDS: ASPIRIN COATED 81 MG TABLET.EC PO SCH (10:39)
[2019-02-25] MEDS: amLODIPine BESYLATE 5 MG TABLET (FP) PO SCH (10:39)
[2019-02-25] MEDS: NEBIVOLOL 5 MG TABLET (FP) PO SCH (10:39)
[2019-02-25] MEDS: VALSARTAN 80 MG TABLET (UD) PO SCH (10:40)
[2019-02-25] MEDS: POTASSIUM CHLORIDE TABS 10 MEQ TABLET.ER (FP) PO SCH (10:40)
[2019-02-25] MEDS: FUROSEMIDE 20 MG TABLET (FP) PO SCH (10:40)
[2019-02-25] MEDS: HEPARIN NA (PORCINE) 5,000 UNITS/ML 1ML VIAL SQ SCH (10:41)
--- NOTE | 2019-02-25 15:24 | ECHO ---
Name: IRA FEREMAN Exam:Adult Echocardiogram Study Date: 02/25/2019 01:42 PM Age: 69 yrs Reason For Study: CHF Height: 75 in Weight: 247 lb BSA: 2.4 m2 MMode/2D Measurements & Calculations IVSd: 1.4 cm Ao root diam: 3.1 cm LVIDd: 6.0 cm LA dimension: 3.5 cm LVIDs: 4.6 cm LVPWd: 1.5 cm EDV(Teich): 178.0 ml LVOT diam: 2.0 cm ESV(Teich): 97.8 ml Doppler Measurements & Calculations MV E max miriam: 94.5 cm/sec MV A max miriam: 68.4 cm/sec MV dec slope: 468.1 cm/sec2 MV E/A: 1.4 Ao V2 max: 126.9 cm/sec LV V1 max P.8 mmHg Ao max P.4 mmHg LV V1 max: 67.8 cm/sec TYLER(V,D): 1.7 cm2 TR max miriam: 206.7 cm/sec PA V2 max: 83.7 cm/sec TR max P.9 mmHg PA max P.8 mmHg PI end-d miriam: 89.0 cm/sec Procedure A complete two-dimensional transthoracic echocardiogram was performed (2D, M-mode, Doppler and color flow Doppler). Left Ventricle The left ventricle is normal in size. There is mild concentric left ventricular hypertrophy. Left jose tricular systolic function is moderate to severely reduced. Ejection Fraction = 35-40%. There is moderate to s evere global hypokinesis of the left ventricle. Right Ventricle The right ventricle is normal size. The right ventricular systolic function is normal. Atria The left atrial size is normal. Right atrial size is normal. Mitral Valve There is mild mitral valve thickening. There is mild mitral annular calcification. There is trace to mild mitral regurgitation. Tricuspid Valve The tricuspid valve is normal in structure and function. There is mild tricuspid regurgitation. Aortic Valve There is mild aortic sclerosis.;. No aortic regurgitation is present. Pulmonic Valve The pulmonic valve is not well visualized. Great Vessels The aortic root is normal size. Pericardium/Pleura There is no pericardial effusion. Interpretation Summary The left ventricle is normal in size. There is mild concentric left ventricular hypertrophy. Left ventricular systolic function is moderate to severely reduced. There is moderate to severe global hypokinesis of the left ventricle. Ejection Fraction = 35-40%. The right ventricular systolic function is normal. The left atrial size is normal. Right atrial size is normal. There is mild mitral valve thickening. There is mild mitral annular calcification. There is trace to mild mitral regurgitation. There is mild tricuspid regurgitation. There is mild aortic sclerosis. There is no pericardial effusion. Raymundo Dodson MD 02/25/2019 03:23 PM
--- NOTE | 2019-02-25 17:04 | PN ---
Progress Note, Physician History of Present Illness: Nonproductive cough, exertional dyspnea, LE edema and orthopnea resolved with BP control and diuresis. - Current Medication List Current Medications: Active Medications Albuterol/Ipratropium (Duoneb -) 1 amp NEB RQID PRN PRN Reason: sob Amlodipine Besylate (Norvasc -) 5 mg PO DAILY [facility] Last Admin: 02/25/19 10:39 Dose: 5 mg Aspirin (Ecotrin -) 81 mg PO DAILY [facility] Last Admin: 02/25/19 10:39 Dose: 81 mg Furosemide (Lasix -) 20 mg PO DAILY [facility] Last Admin: 02/25/19 10:40 Dose: 20 mg Heparin Sodium (Porcine) (Heparin -) 5,000 unit SQ BID [facility] Last Admin: 02/25/19 10:41 Dose: Not Given Nebivolol (Bystolic -) 5 mg PO DAILY [facility] Last Admin: 02/25/19 10:39 Dose: 5 mg Potassium Chloride (K-Dur -) 10 meq PO DAILY [facility] Last Admin: 02/25/19 10:40 Dose: 10 meq Valsartan (Diovan -) 80 mg PO DAILY [facility] Last Admin: 02/25/19 10:40 Dose: 80 mg - Objective Vital Signs: Vital Signs Temperature 97.6 F 02/25/19 14:42 Pulse Rate 68 02/25/19 15:45 Respiratory Rate 20 02/25/19 14:42 Blood Pressure 136/68 02/25/19 14:42 O2 Sat by Pulse Oximetry (%) 93 L 02/25/19 15:45 Constitutional: Yes: No Distress, Calm Neck: Yes: Supple Cardiovascular: Yes: Regular Rate and Rhythm Respiratory: Yes: Regular, CTA Bilaterally Gastrointestinal: Yes: Normal Bowel Sounds, Soft Edema: No Labs: CBC, BMP 02/25/19 07:22 02/25/19 07:22 - ....Imaging EKG: Report Reviewed (Tele: NSR no recurrent NSVT) Problem List - Problems (1) Tobacco dependence due to cigarettes Code(s): F17.210 - NICOTINE DEPENDENCE, CIGARETTES, UNCOMPLICATED (2) Acute respiratory failure with hypoxia Code(s): J96.01 - ACUTE RESPIRATORY FAILURE WITH HYPOXIA (3) CHF exacerbation Code(s): I50.9 - HEART FAILURE, UNSPECIFIED Qualifiers: Heart failure type: combined systolic and diastolic Qualified Code(s): I50.43 - Acute on chronic combined systolic (congestive) and diastolic ( congestive) heart failure (4) Hypertensive cardiomyopathy Code(s): I11.9 - HYPERTENSIVE HEART DISEASE WITHOUT HEART FAILURE; I43 - CARDIOMYOPATHY IN DISEASES CLASSIFIED ELSEWHERE Qualifiers: Heart failure presence: with heart failure Qualified Code(s): I11.0 - Hypertensive heart disease with heart failure; I43 - Cardiomyopathy in diseases classified elsewhere Assessment/Plan 02/25/2019 Echo: Normal LV size with mild cLVH with moderate-severe decreased LVEF 35-40%, normal RV fxn, normal atrial sizes, trace-mild MR, mild TR 1. Acute hypoxic respiratory failure 2. Acute diastolic/systolic heart failure 3. Hypertensive heart disease with urgency 4. Tobacco dependence 5. COPD 6. Non sustained ventricular tachycardia 7. Probable COPD PLAN: 1. Change Lasix to eplerenone 25 qd with close monitoring of renal function and electrolytes 2. Change Diovan to Entresto 24/26 bid with uptitration as hemodynamics tolerate 3. D/c Norvasc 4. Change Bystolic to carvedilol 6.25 bid with uptitration as tolerated 5. Continue ASA 81 qd 6. As outlined in the prior note consider D/C nebulizer therapy no active wheeze 7. Checked lipid profile start Crestor 10 qd, check TSH 8. Counseled smoking cessation and abstinence 9. R&LHc once euvolemic as outpatient, june d/c home from [facility] with f/u in office
--- NOTE | 2019-02-25 18:22 | PN ---
Progress Note (short form) - Note Progress Note: PULMONARY NO SOB/CP VSS/AFEBRILE ANICTERIC DISTANT BUT CLEAR LUNG GUARDADO S1S2 BS+ NO EDEMA LABS/MEDS/IMAGES/CARDIAC CONSULT NOTED IMP ACUTE HYPOXEMIC RESPIRATORY FAILURE RESOLVED ACUTE CHF IMPROVED COPD EXACERBATION RESOLVED HYPERTENSIVE URGENCY TOBACCO ABUSE PLAN O2 PRN INHALED BRONCHODILATORS OUTPATIENT PFTS AMBULATORY O2 SAT ON RA PRIOR TO DISCHARGE SMOKING CESSATION COUNSELED WILL HAVE OUTPATIENT CATH PER RAMON VALLE MD
[2019-02-25] MEDS ORDERED: FLU VACCINE QUAD 60 MCG/0.5 ML (MDV 19-20) IM ONE (20:05)
--- NOTE | 2019-02-25 20:10 | DS ---
Physical Exam: SUBJECTIVE: Patient seen and examined. Feels much better. OBJECTIVE: Vital Signs Period Temp Pulse Resp BP Sys/Bishop Pulse Ox Last 24 Hr 97.5 F-97.9 F 60-68 20-20 114-143/57-78 90-93 PHYSICAL EXAM GENERAL: A&O x3, in no acute distress. HEAD: Normal with no signs of trauma. EYES: PERRL, extraocular movements intact, sclera anicteric, conjunctiva clear. No ptosis. EENT:+Conjunctiva injected appearance. LUNGS: Breath sounds equal, clear to auscultation HEART: Regular rate and rhythm, S1, S2 ABDOMEN: Soft, nontender, nondistended EXTREMITIES: 2+ pulses, warm, well-perfused, no edema. NEUROLOGICAL: Cranial nerves II through XII grossly intact. Normal speech, steady gait LABS Laboratory Results - last 24 hr 02/25/19 02/25/19 07:22 07:22 WBC 9.1 RBC 5.39 Hgb 16.3 Hct 49.5 H MCV 91.9 MCH 30.2 MCHC 32.9 RDW 13.6 Plt Count 279 MPV 8.8 Absolute Neuts (auto) 5.3 Neutrophils % 58.5 Lymphocytes % 25.6 D Monocytes % 9.5 Eosinophils % 5.5 H Basophils % 0.9 Sodium 141 Potassium 4.2 Chloride 96 L Carbon Dioxide 35 H Anion Gap 10 BUN 19.0 H Creatinine 1.1 Est GFR (CKD-EPI)AfAm 80.08 Est GFR (CKD-EPI)NonAf 69.10 Random Glucose 96 Calcium 9.4 Magnesium 2.2 Total Bilirubin 0.8 AST 20 ALT 23 Alkaline Phosphatase 83 Total Protein 7.5 Albumin 4.0 Date of Admission:02/22/19 Date of Discharge: 02/25/19 Pre hospital course 69 year old female with PMHx of HTN, current smoker, past substance abuse arrived to ED with complain of cough, congestion with SOB (exertional dyspnea) for past 4 days, also complains of chills, no fever. Patient took OTC dayquil, nyquil, advil without symptom relief. According to patient every winter he has SOB relieved with bronchodilators. Patient denies past hx CHF or COPD though has not seen a PCP or engineering consultant in a long time. Patient denies fever, headache, nausea/vomiting, cough, chest pain/tightness. Subsequent hospital course 69 year-old male with PMH of HTN, current smoker, past substance abuse, admitted for COPD exacerbation, possible PNA, found to be in acute diastolic/ systolic heart failure. Acute diastolic/systolic heart failure Hypertensive urgency --02/25 Echo: mild cLVH, LV systolic function moderate to severely reduced, EF 35-40%, moderate to severe global hypokinesis; RV normal; trace to mild MR; mild TR --Lasix, Diovan, amlodipine, Bystolic all discontinued by cardiology --eplerenone, Entresto, carvedilol, Crestor started --ASA continued --plan is for R&LHc once euvolemic as outpatient COPD exacerbation --treated with duonebs Minutes to complete discharge: 35 Discharge Summary Problems reviewed: Yes Reason For Visit: ACUTE CHRONIC CONGESTIVE HEART FAILURE Current Active Problems Acute respiratory failure with hypoxia (Acute) CHF exacerbation (Acute) COPD exacerbation (Acute) Hypertension (Acute) Hypertensive cardiomyopathy (Acute) Hypertensive heart disease with acute diastolic congestive heart failure (Acute) Tobacco abuse counseling (Acute) Tobacco dependence due to cigarettes (Acute) Viral URI (Acute) Condition: Improved - Instructions Diet, Activity, Other Instructions: Five prescriptions have been sent to your pharmacy: 1. Aspirin 81mg (baby) 2. Carvedilol 3. Eplerenone 4. Crestor 5. Entresto Take these medications as directed starting tomorrow morning. It is important you follow up with Dr. Chawla, the engineering consultant who treated you in the hospital. See him within one week of your discharge. Return to the emergency department for any new or worsening symptoms. You were offered the flu shot and declined, stating you will get one when you go home. Please get a flu shot at your earliest opportunity. Referrals: Matti Chawla MD [Staff Physician] - 1 Week Disposition: HOME - Home Medications Comprehensive Discharge Medication List: Ambulatory Orders Aspirin Coated [Ecotrin -] 81 mg PO DAILY #30 tablet.ec 02/25/19 Carvedilol [Coreg -] 6.25 mg PO BID #60 tablet 02/25/19 Eplerenone 25 mg PO DAILY #30 tablet 02/25/19 Rosuvastatin Calcium [Crestor] 10 mg PO DAILY #30 tablet 02/25/19 Sacubitril/Valsartan [Entresto 24 mg-26 mg Tablet] 1 tab PO BID #60 tablet 02/25 This patient is new to me today: Yes Date on this admission: 02/27/19 Emergency Visit: Yes ED Registration Date: 02/22/19 Care time: The patient presented to the Emergency Department on the above date and was hospitalized for further evaluation of their emergent condition. Critical Care patient: No - Discharge Referral Referred to [facility] No
[2019-02-25 20:30] VITALS: BP 140/62; PULSE 62; TEMP 98.2
[2019-02-25] MEDS ORDERED: CARVEDILOL 6.25 MG TABLET (FP) PO SCH (22:00)
[2019-02-25] MEDS ORDERED: SACUBITRIL/VALSARTAN 24 MG-26 MG TABLET PO SCH (22:00)
[2019-02-25] MEDS ORDERED: ROSUVASTATIN CA 10 MG TABLET (FP) PO SCH (22:00)
[2019-02-26] MEDS ORDERED: EPLERENONE 25 MG TABLET PO SCH (10:00)
== END 2019-02-25 20:33 | disposition home or self-care (01) | DRG 291 ==
LOC: FER 13:38 → FM/S 16:08
PROVIDERS: ADMIT Hospitalist; ATTEND Nurse Practitioner Acute Care
DX: I11.0 Hypertensive heart disease with heart failure (principal); J96.01 Acute respiratory failure with hypoxia; J44.1 Chronic obstructive pulmonary disease with (acute) exacerbation; I50.41 Acute combined systolic (congestive) and diastolic (congestive) heart failure; F17.210 Nicotine dependence, cigarettes, uncomplicated; I16.0 Hypertensive urgency
CPT/HCPCS: 36415; 71046-TC-FY; 71250-TC; 80048; 80053; 80061; 82550; 83036; 83735; 83880; 84484; 85025; 87804; 93005; 93306-TC; 94640; 94761; 97116-GP; 97162-GP; 99283-25; J1644

== ENCOUNTER 2021-08-16 19:34 | Inpatient (IN) | payer MEDICARE ==
[2021-08-16] MEDS ORDERED: LIDOCAINE 5% TOPICAL PATCH TP ONE (20:20)
[2021-08-16] MEDS ORDERED: ACETAMINOPHEN 1000 MG/100 ML BAG IVPB ONE (20:20)
[2021-08-16] MEDS ORDERED: ACETAMINOPHEN INJECTION 100 ML IVPB ONE (20:38)
[2021-08-16] MEDS ORDERED: LIDOCAINE 5% TOPICAL PATCH ONE (20:38)
[2021-08-16 21:28] LABS: BASO % 0.4 % (0-2.0); HEMATOCRIT 41.7 % (35.4-49); HEMOGLOBIN 13.9 GM/dL (11.7-16.9); LYMPH % 2.7 % (8-40); MCH 29.4 pg (25.7-33.7); MCHC 33.4 g/dl (32.0-35.9); MEAN CELL VOLUME 88.1 fl (80-96); MEAN PLT VOLUME 8.2 fl (7.5-11.1); MONO % 11.2 % (3.8-10.2); NEUT % 84.7 % (42.8-82.8); PLATELET COUNT 222 10^3/uL (134-434); RBC 4.73 M/mm3 (4.00-5.60); RDW 13.9 % (11.9-15.9); WHITE BLOOD COUNT 11.7 K/mm3 (4.0-10.0)
[2021-08-16] MEDS ORDERED: LIDOCAINE PATCH REMOVAL MC ONE (22:00)
[2021-08-16 22:04] LABS: CALCIUM 9.2 mg/dL (8.5-10.1)
[2021-08-16 22:05] LABS: BLOOD UREA NITROGEN 19.1 mg/dL (7-18); MAGNESIUM 1.8 mg/dL (1.8-2.4)
[2021-08-16 22:08] LABS: CREATININE 1.3 mg/dL (0.55-1.3)
[2021-08-16 22:09] LABS: TOT PROT 7.8 g/dl (6.4-8.2)
[2021-08-16 22:10] LABS: BILIRUBIN,TOTAL 0.4 mg/dL (0.2-1)
[2021-08-16 22:13] LABS: N-TERMINAL BNP 124.2 pg/ml (5-125)
[2021-08-16 23:59] LABS: URINE APPEARANCE CLEAR; URINE BILIRUBIN NEGATIVE (NEGATIVE); URINE COLOR YELLOW; URINE GLUCOSE (UA) NEGATIVE (NEGATIVE); URINE KETONE 1+ (NEGATIVE); URINE LEUK ESTERASE NEGATIVE (NEGATIVE); URINE NITRITE NEGATIVE (NEGATIVE); URINE PROTEIN TRACE (NEGATIVE); URINE UROBILINOGEN 0.2 mg/dL (0.2-1.0)
[2021-08-17] MEDS ORDERED: ACETAMINOPHEN 1000 MG/100 ML BAG IVPB PRN (02:56)
[2021-08-17] MEDS ORDERED: MELATONIN 5 MG TABLETS PO PRN (02:56)
[2021-08-17] MEDS ORDERED: ASPIRIN COATED 81 MG TABLET.EC ONE (07:39)
[2021-08-17] MEDS ORDERED: CARVEDILOL 25 MG TABLET (FP) ONE (07:39)
[2021-08-17] MEDS ORDERED: LOSARTAN POTASSIUM 50 MG TABLET ONE (07:39)
[2021-08-17] MEDS ORDERED: ENOXAPARIN NA (PORCINE) 40 MG/0.4 ML DISP.SYRIN SQ ONE (07:40)
[2021-08-17] MEDS ORDERED: LIDOCAINE 5% TOPICAL PATCH ONE (07:40)
[2021-08-17 08:57] LABS: HEMATOCRIT 39.3 % (35.4-49); HEMOGLOBIN 13.4 GM/dL (11.7-16.9); MCH 29.7 pg (25.7-33.7); MEAN CELL VOLUME 87.5 fl (80-96); MEAN PLT VOLUME 8.4 fl (7.5-11.1); PLATELET COUNT 202 10^3/uL (134-434); RBC 4.49 M/mm3 (4.00-5.60); RDW 13.7 % (11.9-15.9); WHITE BLOOD COUNT 8.2 K/mm3 (4.0-10.0)
[2021-08-17] MEDS: LIDOCAINE 5% TOPICAL PATCH TP SCH (09:00)
[2021-08-17] MEDS: CARVEDILOL 25 MG TABLET (FP) PO SCH ×2 (09:00→22:24)
[2021-08-17] MEDS: ASPIRIN COATED 81 MG TABLET.EC PO SCH (09:00)
[2021-08-17] MEDS: LOSARTAN POTASSIUM 50 MG TABLET PO SCH (09:00)
[2021-08-17] MEDS: EPLERENONE 25 MG TABLET PO SCH (09:00)
[2021-08-17] MEDS: ENOXAPARIN NA (PORCINE) 40 MG/0.4 ML DISP.SYRIN SQ SCH (09:06)
[2021-08-17 09:37] LABS: ALBUMIN 3.7 g/dl (3.4-5.0); BLOOD UREA NITROGEN 19.5 mg/dL (7-18)
[2021-08-17 09:40] LABS: CREATININE 1.2 mg/dL (0.55-1.3)
[2021-08-17 09:42] LABS: BILIRUBIN,TOTAL 0.4 mg/dL (0.2-1); TOT PROT 7.5 g/dl (6.4-8.2)
[2021-08-17 10:16] LABS: ANISOCYTOSIS 1+; MACROCYTOSIS 0
[2021-08-17] MEDS ORDERED: DEXAMETHASONE SOD PHOSPHATE 10 MG/1 ML VIAL ONE (16:14)
[2021-08-17] MEDS: DEXAMETHASONE SOD PHOSPHATE 10 MG/1 ML VIAL IVPUSH SCH (16:33)
[2021-08-17 18:48] VITALS: BMI 36.1
[2021-08-17] MEDS: ROSUVASTATIN CA 10 MG TABLET PO SCH (22:23)
[2021-08-17] MEDS: CYCLOBENZAPRINE HCL 10 MG TABLET (FP) PO PRN (22:24)
[2021-08-17] MEDS: LIDOCAINE PATCH REMOVAL MC SCH (22:30)
[2021-08-18] MEDS ORDERED: ALBUTEROL SO4 HFA INHALER IH PRN (10:42)
[2021-08-18] MEDS ORDERED: REMDESIVIR 200 MG in SODIUM CHLORIDE 250 ML IVPB ONE (11:00)
[2021-08-18] MEDS: LIDOCAINE 5% TOPICAL PATCH TP SCH (12:15)
[2021-08-18] MEDS: ENOXAPARIN NA (PORCINE) 40 MG/0.4 ML DISP.SYRIN SQ SCH (12:15)
[2021-08-18] MEDS: LOSARTAN POTASSIUM 50 MG TABLET PO SCH (12:16)
[2021-08-18] MEDS: CARVEDILOL 25 MG TABLET (FP) PO SCH ×2 (12:16→21:43)
[2021-08-18] MEDS: EPLERENONE 25 MG TABLET PO SCH (12:16)
[2021-08-18] MEDS: DEXAMETHASONE SOD PHOSPHATE 10 MG/1 ML VIAL IVPUSH SCH (12:17)
[2021-08-18] MEDS: ASPIRIN COATED 81 MG TABLET.EC PO SCH (12:17)
[2021-08-18] MEDS: ROSUVASTATIN CA 10 MG TABLET PO SCH (21:43)
[2021-08-18] MEDS: LIDOCAINE PATCH REMOVAL MC SCH (21:44)
[2021-08-18] MEDS: CYCLOBENZAPRINE HCL 10 MG TABLET (FP) PO PRN (21:54)
[2021-08-19 08:38] LABS: BASO % 0.2 % (0-2.0); HEMATOCRIT 39.9 % (35.4-49); HEMOGLOBIN 13.5 GM/dL (11.7-16.9); LYMPH % 21.1 % (8-40); MCH 29.8 pg (25.7-33.7); MCHC 33.9 g/dl (32.0-35.9); MEAN CELL VOLUME 87.8 fl (80-96); MEAN PLT VOLUME 8.4 fl (7.5-11.1); MONO % 14.2 % (3.8-10.2); NEUT % 64.5 % (42.8-82.8); PLATELET COUNT 207 10^3/uL (134-434); RBC 4.54 M/mm3 (4.00-5.60); WHITE BLOOD COUNT 7.4 K/mm3 (4.0-10.0)
[2021-08-19 09:04] LABS: CREATININE 1.1 mg/dL (0.55-1.3)
[2021-08-19] MEDS: ASPIRIN COATED 81 MG TABLET.EC PO SCH (09:53)
[2021-08-19] MEDS: LOSARTAN POTASSIUM 50 MG TABLET PO SCH (09:53)
[2021-08-19] MEDS: CARVEDILOL 25 MG TABLET (FP) PO SCH ×2 (09:53→21:04)
[2021-08-19] MEDS: DEXAMETHASONE SOD PHOSPHATE 10 MG/1 ML VIAL IVPUSH SCH (09:53)
[2021-08-19] MEDS: ENOXAPARIN NA (PORCINE) 40 MG/0.4 ML DISP.SYRIN SQ SCH (09:54)
[2021-08-19] MEDS: LIDOCAINE 5% TOPICAL PATCH TP SCH (09:54)
[2021-08-19] MEDS: EPLERENONE 25 MG TABLET PO SCH (09:54)
[2021-08-19] MEDS: REMDESIVIR 100 MG in SODIUM CHLORIDE 250 ML IVPB SCH (11:48)
[2021-08-19] MEDS ORDERED: diazePAM 5 MG TABLET PO PRN (11:59)
[2021-08-19] MEDS: LIDOCAINE PATCH REMOVAL MC SCH (21:04)
[2021-08-19] MEDS: CYCLOBENZAPRINE HCL 10 MG TABLET (FP) PO PRN (21:04)
[2021-08-19] MEDS: ROSUVASTATIN CA 10 MG TABLET PO SCH (21:04)
[2021-08-20 08:55] LABS: BASO % 0.1 % (0-2.0); HEMATOCRIT 41.5 % (35.4-49); HEMOGLOBIN 13.9 GM/dL (11.7-16.9); LYMPH % 17.7 % (8-40); MCH 29.5 pg (25.7-33.7); MCHC 33.5 g/dl (32.0-35.9); MEAN PLT VOLUME 8.4 fl (7.5-11.1); MONO % 11.6 % (3.8-10.2); NEUT % 70.6 % (42.8-82.8); PLATELET COUNT 210 10^3/uL (134-434); RBC 4.72 M/mm3 (4.00-5.60); WHITE BLOOD COUNT 9.3 K/mm3 (4.0-10.0)
[2021-08-20 09:26] LABS: ALBUMIN 3.7 g/dl (3.4-5.0)
[2021-08-20 09:27] LABS: BLOOD UREA NITROGEN 21.3 mg/dL (7-18)
[2021-08-20 09:30] LABS: BILIRUBIN,DIRECT 0.2 mg/dL (0.0-0.2); BILIRUBIN,TOTAL 0.9 mg/dL (0.2-1); TOT PROT 7.5 g/dl (6.4-8.2)
[2021-08-20] MEDS: LOSARTAN POTASSIUM 50 MG TABLET PO SCH (10:08)
[2021-08-20] MEDS: ASPIRIN COATED 81 MG TABLET.EC PO SCH (10:08)
[2021-08-20] MEDS: CARVEDILOL 25 MG TABLET (FP) PO SCH ×2 (10:08→22:18)
[2021-08-20] MEDS: EPLERENONE 25 MG TABLET PO SCH (10:09)
[2021-08-20] MEDS: DEXAMETHASONE SOD PHOSPHATE 10 MG/1 ML VIAL IVPUSH SCH (10:09)
[2021-08-20] MEDS: ENOXAPARIN NA (PORCINE) 40 MG/0.4 ML DISP.SYRIN SQ SCH ×2 (10:11→10:19)
[2021-08-20] MEDS: LIDOCAINE 5% TOPICAL PATCH TP SCH ×2 (10:11→10:18)
[2021-08-20] MEDS: REMDESIVIR 100 MG in SODIUM CHLORIDE 250 ML IVPB SCH (11:21)
[2021-08-20] MEDS: ROSUVASTATIN CA 10 MG TABLET PO SCH (22:17)
[2021-08-20] MEDS: CYCLOBENZAPRINE HCL 10 MG TABLET (FP) PO PRN (22:18)
[2021-08-20] MEDS: LIDOCAINE PATCH REMOVAL MC SCH (22:21)
[2021-08-21] MEDS: DEXAMETHASONE SOD PHOSPHATE 10 MG/1 ML VIAL IVPUSH SCH (09:43)
[2021-08-21] MEDS: ENOXAPARIN NA (PORCINE) 40 MG/0.4 ML DISP.SYRIN SQ SCH (09:43)
[2021-08-21] MEDS: ASPIRIN COATED 81 MG TABLET.EC PO SCH (09:44)
[2021-08-21] MEDS: EPLERENONE 25 MG TABLET PO SCH (09:44)
[2021-08-21] MEDS: CARVEDILOL 25 MG TABLET (FP) PO SCH (09:44)
[2021-08-21] MEDS: LOSARTAN POTASSIUM 50 MG TABLET PO SCH (09:44)
[2021-08-21] MEDS: LIDOCAINE 5% TOPICAL PATCH TP SCH (09:45)
[2021-08-21] MEDS: REMDESIVIR 100 MG in SODIUM CHLORIDE 250 ML IVPB SCH (12:11)
[2021-08-21 15:35] VITALS: BP 118/61; PULSE 71; TEMP 99
== END 2021-08-21 16:03 | disposition home or self-care (01) | DRG 178 ==
LOC: JER 19:34 → JERBED 22:24 → J8W 08-17 18:29
PROVIDERS: ADMIT Internal Medicine; ATTEND Internal Medicine
PROC: 3E0333Z Introduction of Anti-inflammatory into Peripheral Vein, Percutaneous Approach (ICD-10-PCS; 2021-08-17)
PROC: XW033E5 Introduction of Remdesivir Anti-infective into Peripheral Vein, Percutaneous Approach, New Technology Group 5 (ICD-10-PCS; principal; 2021-08-18)
DX: U07.1 COVID-19 (principal); I24.8 Other forms of acute ischemic heart disease; I50.22 Chronic systolic (congestive) heart failure; J44.9 Chronic obstructive pulmonary disease, unspecified; I10 Essential (primary) hypertension; M54.50 Low back pain, unspecified; R26.89 Other abnormalities of gait and mobility; D72.829 Elevated white blood cell count, unspecified; I25.10 Atherosclerotic heart disease of native coronary artery without angina pectoris; I11.0 Hypertensive heart disease with heart failure; K42.9 Umbilical hernia without obstruction or gangrene; E66.9 Obesity, unspecified; Z68.34 Body mass index [BMI] 34.0-34.9, adult; M48.061 Spinal stenosis, lumbar region without neurogenic claudication; I71.2 Thoracic aortic aneurysm, without rupture; F17.200 Nicotine dependence, unspecified, uncomplicated
CPT/HCPCS: 0241U-QW; 36415; 71045-TC-FY; 80048; 80053; 80076; 81003; 82728; 82962; 83036; 83615; 83735; 83880; 84100; 84484; 85025; 85379; 86140; 87086; 87651; 93005; 93010; 94761; 97116-GP; 97161-GP; 99285-25; C9399; J1100